=== PATIENT | female | born 1990 | race Caucasian/White ===

== ENCOUNTER 2019-07-25 14:53 | Emergency (ER) | payer OTHER, SELFPAY ==
[2019-07-25 15:00] VITALS: BP 118/71; PULSE 82; RESP 16; TEMP 36.3; O2SAT 99
--- NOTE | 2019-07-25 15:39 | ED.URI ---
HPI - URI/Sore Throat General Chief Complaint: Upper Respiratory Infection Stated Complaint: cough/sob Time Seen by Provider: 07/25/19 15:39 Source: patient and RN notes reviewed Mode of arrival: ambulatory Limitations: no limitations History of Present Illness HPI Narrative: 29-year-old female who presents to [facility] care with complaints of head congestion, cough, sore throat, for a total 3-week duration. Patient states she was seen in emergency room about a week ago in [place] and was prescribed an inhaler, Sudafed and was given prednisone for 4 days but does not feel that her symptoms are any better. Patient states that she continues to have cough and some tightness with her breathing, states throat is sore due to nasal drainage and cough, denies any recent fevers denies any ear pain, positive for clear sinus drainage. MD elicited complaint: cough, rhinorrhea and nasal congestion Pertinent past history: asthma and other (tobacco abuse) Onset (ago): week(s) (3) Consistency: constant Severity: moderate Pain scale (0-10): 5 Description of mucous: clear Able to tolerate fluids by mouth: Yes Exacerbating factors: exertion and deep breaths Relieving factors: nothing Associated symptoms: rhinorrhea, nasal congestion, cough, chest pain and shortness of breath Treatments prior to arrival: other (inhaler, sudafed, and steroid) Related Data Home Medications Medication Instructions Recorded Confirmed albuterol sulfate [ProAir HFA] INHALATION 07/25/19 Allergies Allergy/AdvReac Type Severity Reaction Status Date / Time hydrocodone Allergy Nausea Verified 07/25/19 14:59 tramadol Allergy Vomiting Verified 07/25/19 14:59 Review of Systems Review of Systems: Narrative: CONSTITUTIONAL: Denies fever, chills, or sweats. EYES: Denies visual changes, redness, or discharge. ENT: positive rhinorrhea, congestion, no sore throat, or otalgia. CARDIOVASCULAR: positive chest pain with cough,no palpitations, or edema. RESPIRATORY: positive cough denies any acute dyspnea GASTROINTESTINAL: Denies abdominal pain, nausea, vomiting, or diarrhea. GENITOURINARY: Denies dysuria or hematuria. SKIN: Denies rash or itching. MUSCULOSKELETAL: Denies back pain, joint pain, or myalgia. NEUROLOGIC: Denies headache, numbness, or weakness. PSYCHIATRIC: Denies anxiety or depression. All systems reviewed & are unremarkable except as noted in HPI and below PMFSH Past Medical History Medical History (Updated 07/25/19 @ 17:24 by Nga Aguilar NP) Asthma Endometriosis Surgical History Surgical History (Updated 07/25/19 @ 17:26 by Nga Aguilar NP) History of laparoscopy History of tonsillectomy Previous section S/P wisdom tooth extraction Social History Social History (Updated 07/25/19 @ 17:26 by Nga Aguilar NP) Smoking status: Current every day smoker Tobacco type: cigarettes Living arrangements: with family Gender identity (if verbalized by the patient): Female Comments At time of signature, agree with nursing past medical, surgical, social history. There is no relevant family history pertinent to the presenting complaint Exam Narrative: Exam Narrative: GENERAL: Well-appearing, well-nourished, and in no acute distress. HEAD: Normocephalic, atraumatic. EYES: PERRLA and EOMI. ENT: Nares light red, clear rhinorrhea no epistaxis. Mucous membranes moist.TMs normal with good light reflex, throat pink with no lesions or exudate, tonsils not enlarged no lymphadenopathy CHEST: Decreased on auscultation, no wheezing noted on auscultation. No respiratory distress.SAO2 99% dry cough noted HEART: Regular rate and rhythm. No murmur heard. Normal peripheral pulses. ABDOMEN: Soft, non tender, non distended, normal active bowel sounds. EXTREMITIES: Normal range of motion. No edema. SKIN: Warm, dry, no rash. NEURO: No focal deficits. Alert and oriented x3. Course Vital Signs Vital signs: Vital Signs Temperature 36.3
== END 2019-07-25 15:57 | disposition home or self-care (01) ==
PROVIDERS: Emergency Provider Registered Nurse
DX: J01.90 Acute sinusitis, unspecified (principal); J45.901 Unspecified asthma with (acute) exacerbation; F17.210 Nicotine dependence, cigarettes, uncomplicated; N80.9 Endometriosis, unspecified
CPT/HCPCS: 99213; G0463